=== PATIENT | female | born 2000 | race Caucasian/White ===

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

== ENCOUNTER 2020-06-03 08:30 | Emergency (ER) | payer OTHER ==
[2020-06-03 08:40] VITALS: BP 133/88; PULSE 77; TEMP 98.1; BMI 33.3
[2020-06-03 09:28] LABS: PH,URINE 7.5 (5.0-8.0); URINE APPEARANCE CLEAR; URINE BILIRUBIN NEGATIVE (NEGATIVE); URINE COLOR YELLOW; URINE GLUCOSE (UA) NEGATIVE (NEGATIVE); URINE KETONE NEGATIVE (NEGATIVE); URINE LEUK ESTERASE NEGATIVE (NEGATIVE); URINE NITRITE NEGATIVE (NEGATIVE); URINE PROTEIN NEGATIVE (NEGATIVE); URINE UROBILINOGEN 0.2 mg/dL (0.2-1.0)
[2020-06-03 09:31] LABS: HCG,QUALITATIVE URINE Negative
[2020-06-03] MEDS ORDERED: LIDOCAINE VISCOUS 2% ORAL/TOP 20 ML UNIT-DOSE CUP MM ONE (09:41)
[2020-06-03] MEDS ORDERED: MAG HYDROX/AL HYDROX/SIMETH 30 ML UNIT-DOSE CUP PO ONE (09:41)
[2020-06-03] MEDS ORDERED: HYOSCYAMINE SULFATE 0.125 MG *ODT PO ONE (09:41)
[2020-06-03] MEDS ORDERED: MAG HYDROX/AL HYDROX/SIMETH 30 ML UNIT-DOSE CUP ONE (09:49)
[2020-06-03] MEDS ORDERED: LIDOCAINE VISCOUS 2% ORAL/TOP 20 ML UNIT-DOSE CUP ONE (09:49)
== END 2020-06-03 10:40 | disposition home or self-care (01) ==
LOC: JER 08:30
DX: R10.13 Epigastric pain (principal)
CPT/HCPCS: 81003; 84703; 87086; 99283-25

== ENCOUNTER 2021-08-12 14:22 | Inpatient (IN) | payer OTHER ==
[2021-08-12] MEDS ORDERED: ELECTROLYTE-148 SOLN 1,000 ML IV SCH (16:45)
[2021-08-12 17:32] VITALS: BMI 34.9
[2021-08-12 17:39] LABS: BASO % 0.3 % (0-2.0); HEMOGLOBIN 11.3 GM/dL (10.7-15.3); LYMPH % 8.9 % (8-40); MCH 27.7 pg (25.7-33.7); MCHC 33.3 g/dl (32.0-36.0); MEAN CELL VOLUME 83.1 fl (80-96); MEAN PLT VOLUME 8.7 fl (7.5-11.1); NEUT % 88.8 % (42.8-82.8); PLATELET COUNT 264 10^3/uL (134-434); RBC 4.09 M/mm3 (3.60-5.2); RDW 14.6 % (11.6-15.6); WHITE BLOOD COUNT 13.8 K/mm3 (4.0-10.0)
[2021-08-12 18:00] LABS: CALCIUM 8.8 mg/dL (8.5-10.1)
[2021-08-12 18:01] LABS: BLOOD UREA NITROGEN 10.9 mg/dL (7-18)
[2021-08-12 18:05] LABS: CREATININE 0.5 mg/dL (0.55-1.3)
[2021-08-12] MEDS ORDERED: FENTANYL/BUPIVACAINE/NS/PF - PCEA - 50 ML DISP.SYRIN EP ONE (18:16)
[2021-08-12 18:47] LABS: INR 0.92 (0.83-1.09); PROTHROMBIN TIME (PATIENT) 10.6 SEC (9.7-13.0)
[2021-08-12 18:50] LABS: ACTIVATED PTT 27.8 SECONDS (25.2-36.5)
[2021-08-12] MEDS ORDERED: NALOXONE HCL 0.4 MG/ML VIAL IVPUSH PRN (18:51)
[2021-08-12] MEDS ORDERED: FENTANYL/BUPIVACAINE/NS/PF - PCEA - 50 ML DISP.SYRIN EP SCH (19:00)
[2021-08-12] MEDS ORDERED: OXYTOCIN 20 UNITS in 0.9% NS 20 UNIT/1,000 ML INFUS.BAG IV ONE (19:51)
[2021-08-12] MEDS ORDERED: LIDOCAINE HCL 1% PRESERVATIVE FREE - 30ML VIAL ONE (19:52)
[2021-08-12] MEDS ORDERED: OXYTOCIN 30 UNITS in 0.9% NS 30 UNIT/500 ML INFUS.BAG IVPB SCH (21:00)
[2021-08-12] MEDS ORDERED: BISACODYL 10 MG SUPP.RECT RC PRN (22:30)
[2021-08-12] MEDS ORDERED: METHYLERGONOVINE MALEATE 0.2 MG/1 ML AMP IM PRN (22:30)
[2021-08-12] MEDS ORDERED: BENZOCAINE 28 GM HEMORRHOIDAL OINTMENT TP PRN (22:30)
[2021-08-12] MEDS ORDERED: OXYTOCIN 20 UNITS in 0.9% NS 20 UNIT/1,000 ML INFUS.BAG IV SCH (22:30)
[2021-08-12] MEDS ORDERED: BENZOCAINE 20% 57 GM BOTTLE TP PRN (22:30)
[2021-08-12] MEDS ORDERED: ACETAMINOPHEN 325 MG TABLET (FP) PO PRN (22:30)
[2021-08-12] MEDS ORDERED: WITCH HAZEL 50% (TUCKS) 40 PAD/JAR PAD TP PRN (22:30)
[2021-08-13] MEDS: IBUPROFEN 600 MG TABLET (FP) PO PRN (05:00)
[2021-08-13 08:58] LABS: BASO % 0.3 % (0-2.0); EOS % 0.2 % (0-4.5); HEMATOCRIT 30.2 % (32.4-45.2); HEMOGLOBIN 10.2 GM/dL (10.7-15.3); LYMPH % 17.4 % (8-40); MCH 28.3 pg (25.7-33.7); MCHC 33.8 g/dl (32.0-36.0); MEAN CELL VOLUME 83.6 fl (80-96); MEAN PLT VOLUME 8.7 fl (7.5-11.1); MONO % 5.8 % (3.8-10.2); NEUT % 76.3 % (42.8-82.8); PLATELET COUNT 246 10^3/uL (134-434); RBC 3.61 M/mm3 (3.60-5.2); RDW 14.7 % (11.6-15.6); WHITE BLOOD COUNT 14.1 K/mm3 (4.0-10.0)
[2021-08-13 09:24] LABS: POC NITRAZINE NEG
[2021-08-13] MEDS: PRENATAL VITAMINS W/ FOLIC ACID TABLET (FP) PO SCH (10:48)
[2021-08-13 21:48] VITALS: TEMP 98.1
[2021-08-13] MEDS ORDERED: SENNOSIDES/DOCUSATE COMBO (SENNA PLUS) TABLET (UD) PO PRN (22:00)
[2021-08-14] MEDS: IBUPROFEN 600 MG TABLET (FP) PO PRN (08:15)
[2021-08-14] MEDS: PRENATAL VITAMINS W/ FOLIC ACID TABLET (FP) PO SCH (09:31)
[2021-08-14 13:26] VITALS: BP 116/73; PULSE 70
== END 2021-08-14 14:45 | disposition home or self-care (01) | DRG 560 ==
LOC: JDEL 14:22 → JLDR 16:30 → J3W 08-13 00:30
PROVIDERS: ADMIT Obstetrics & Gynecology; ATTEND Obstetrics & Gynecology
PROC: 10E0XZZ Delivery of Products of Conception, External Approach (ICD-10-PCS; principal; 2021-08-12)
PROC: 0W8NXZZ Division of Female Perineum, External Approach (ICD-10-PCS; 2021-08-12)
PROC: 0HQ9XZZ Repair Perineum Skin, External Approach (ICD-10-PCS; 2021-08-12)
DX: O70.0 First degree perineal laceration during delivery (principal); O77.0 Labor and delivery complicated by meconium in amniotic fluid; O99.214 Obesity complicating childbirth; E66.9 Obesity, unspecified; Z3A.40 40 weeks gestation of pregnancy; Z37.0 Single live birth
CPT/HCPCS: 36415; 59025; 59409; 71046-TC-FY; 80048; 83986-QW; 85025; 85610; 85730; 86780; 86850; 86900; 86901; C9803-CS; G0463-25; U0003; U0005

== ENCOUNTER 2023-11-21 13:55 | Emergency (ER) | payer OTHER ==
[2023-11-21 14:06] VITALS: BP 116/79; PULSE 71; RESP 17; TEMP 98.3; BMI 29.7
[2023-11-21] MEDS ORDERED: KETOROLAC TROMETHAMINE 30 MG/1 ML VIAL ONE (15:14)
[2023-11-21] MEDS ORDERED: CYCLOBENZAPRINE HCL 10 MG TABLET (FP) ONE (15:14)
[2023-11-21] MEDS: KETOROLAC TROMETHAMINE 30 MG/1 ML VIAL IM ONE (15:22)
[2023-11-21] MEDS: CYCLOBENZAPRINE HCL 10 MG TABLET (FP) PO ONE (15:23)
== END 2023-11-21 16:30 | disposition home or self-care (01) ==
LOC: JERFT 13:55
PROC: 3E0133Z Introduction of Anti-inflammatory into Subcutaneous Tissue, Percutaneous Approach (ICD-10-PCS; principal; 2023-11-21)
DX: M54.6 Pain in thoracic spine (principal); W01.198A Fall on same level from slipping, tripping and stumbling with subsequent striking against other object, initial encounter
CPT/HCPCS: 72070-TC-FY; 72100-TC-FY; 73590-TC-RT-FY; 99284-25

== ENCOUNTER 2023-12-22 13:54 | Emergency (ER) | payer OTHER ==
[2023-12-22 14:02] VITALS: BP 115/78; PULSE 86; RESP 20; TEMP 98.8; BMI 30.2
== END 2023-12-22 15:55 | disposition home or self-care (01) ==
LOC: JERFT 13:54
DX: R21 Rash and other nonspecific skin eruption (principal); B02.9 Zoster without complications
CPT/HCPCS: 99283-25